=== PATIENT | male | born 1955 | race African-American/Black ===

== ENCOUNTER 2016-03-10 10:57 | Inpatient (IN) | payer OTHER ==
[2016-03-10 11:45] VITALS: BMI 30.8
--- NOTE | 2016-03-10 13:02 | HP ---
CIWA Score - CIWA Score Nausea/Vomitin Muscle Tremors: 3 Anxiety: 3 Agitation: 3 Paroxysmal Sweats: 2 Orientation: 0-Oriented Tacttile Disturbances: 2-Mild Itch/Numbness/Burn Auditory Disturbances: 2-Mild Harshness/Frighten Visual Disturbances: 2-Mild Sensitivity Headache: 2-Mild CIWA-Ar Total Score: 22 Admission ROS BHS - HPI Chief Complaint: i need help to stop drinking alcohol,cocaine,heroin abused,mmtp 110/mgs per day, last medicated today Allergies/Adverse Reactions: Allergies Allergy/AdvReac Type Severity Reaction Status Date / Time No Known Allergies Allergy Verified 03/10/16 12:54 History of Present Illness: this 60 years old mal with alcohol,cocaine dependence,heroin abused,mmtp last medicated today,withdrawal symptom,last detox 2003 hypertension type 2 dm hepatitis c nicotine dependence mmtp 110 mg/day,last medicated today longest period of sobriety 12 years Exam Limitations: No Limitations - Ebola screening Have you traveled outside of the country in the last 21 days: No Have you had contact with anyone from an Ebola affected area: No Have you been sick,other than usual withdrawal symptoms: No - Review of Systems Constitutional: Chills, Diaphoresis, Loss of Appetite, Malaise, Night Sweats, Changes in sleep, Weakness EENT: reports: Nose Congestion Respiratory: reports: No Symptoms reported Cardiac: reports: No Symptoms Reported GI: reports: Diarrhea, Nausea, Vomiting, Abdominal cramping : reports: No Symptoms Reported Musculoskeletal: reports: Back Pain, Joint Pain, Muscle Pain, Joint Stiffness Integumentary: reports: Dryness Neuro: reports: Headache, Tremors Endocrine: reports: No Symptoms Reported Hematology: reports: No Symptoms Reported Psychiatric: reports: Depressed Other Systems: Reviewed and Negative Patient History - Patient Medical History Hx Anemia: No Hx Asthma: No Hx Chronic Obstructive Pulmonary Disease (COPD): No Hx Cancer: No Hx Cardiac Disorders: Yes (old mi in 2011) Hx Congestive Heart Failure: No Hx Hypertension: Yes (on medication) Hx Hypercholesterolemia: No Hx Pacemaker: No HX Cerebrovascular Accident: No Hx Seizures: No Hx Dementia: No Hx Diabetes: Yes (no med) Hx Gastrointestinal Disorders: No Hx Liver Disease: No Hx Genitourinary Disorders: No Hx Sexually Transmitted Disorders: No Hx Renal Disease (ESRD): No Hx Thyroid Disease: No Hx Human Immunodeficiency Virus (HIV): No (last 09/12 negative) Hx Hepatitis C: Yes (monitor by pmd) Hx Depression: Yes Hx Suicide Attempt: No Hx Bipolar Disorder: No Hx Schizophrenia: No Other Medical History: no suiidal,no homicidal - Patient Surgical History Other Surgical History: dog bite right leg - PPD History Previous Implant?: Yes Documented Results: Negative w/o proof Implanted On Prior [facility] Admission?: No PPD to be Administered?: Yes - Smoking Cessation Smoking history: Current every day smoker Have you smoked in the past 12 months: Yes Aproximately how many cigarettes per day: 20 Cigars Per Day: 0 Hx Chewing Tobacco Use: No Initiated information on smoking cessation: Yes 'Breaking Loose' booklet given: 03/10/16 - Substance & Tx. History Hx Alcohol Use: Yes Substance Use Type: Alcohol, Cocaine Hx Substance Use Treatment: Yes (in 2003 [facility]) Family Disease History - Family Disease History Family Disease History: Other: Father (alcohol,) Admission Physical Exam S - Vital Signs Vital Signs: Vital Signs - 24 hr 03/10/16 11:42 Temperature 97.1 F L Pulse Rate 80 Respiratory 16 Rate Blood Pressure 127/81 - Physical General Appearance: Yes: Moderate Distress, Tremorous, Irritable, Sweating, Anxious HEENTM: Yes: Nasal Congestion Respiratory: Yes: Lungs Clear Neck: Yes: Within Normal Limits Breast: Yes: Within Normal Limits Cardiology: Yes: Within Normal Limits, Regular Rhythm, Regular Rate, S1, S2 Abdominal: Yes: Within Normal Limits, Normal Bowel Sounds, Non Tender, Flat, Soft Genitourinary: Yes: Within Normal Limits Back: Yes: Muscle Spasm Musculoskeletal: Yes: Back pain, Muscle Pain Extremities: Yes: Tremors Neurological: Yes: customer service clerk II-XII NML intact, Fully Oriented, Alert, Motor Strength 5/5 Integumentary: Yes: Dry Lymphatic: Yes: Within Normal Limits - Diagnostic (1) Alcohol dependence with uncomplicated withdrawal Current Visit: Yes Status: Acute (2) Cocaine dependence Current Visit: Yes Status: Acute (3) Opioid dependence Current Visit: Yes Status: Acute (4) Patient on methadone maintenance therapy Current Visit: Yes Status: Acute (5) Essential hypertension Current Visit: Yes Status: Acute (6) Hepatitis C Current Visit: Yes Status: Acute (7) DM2 (diabetes mellitus, type 2) Current Visit: Yes Status: Acute (8) Anxiety and depression Current Visit: Yes Status: Acute (9) Low back pain Current Visit: Yes Status: Acute Cleared for Admission [facility] - Detox or Rehab [facility] Level of Care: Medically Managed Detox Regimen/Protocol: Librium [facility] Breath Alcohol Content Breath Alcohol Content: 0 Urine Drug Screen - Results Drug Screen Negative: No Urine Drug Screen Results: ESTUARDO-Cocaine, OPI-Opiates, MTD-Methadone, TCA- Tricyclic Antidepress, OXY-Oxycodone
[2016-03-10] MEDS ORDERED: guaiFENesin/D-METHORPHAN HB 10 ML UNIT-DOSE CUPS PO PRN (13:29)
[2016-03-10] MEDS ORDERED: P-EPHED 60MG/TRIPROLIDI 2.5MG TABLET PO PRN (13:29)
[2016-03-10] MEDS ORDERED: LOPERAMIDE HCL 2 MG CAPSULE PO PRN (13:29)
[2016-03-10] MEDS ORDERED: diphenhydrAMINE HCL 50 MG CAPSULE PO PRN (13:29)
[2016-03-10] MEDS ORDERED: hydrOXYzine PAMOATE 25 MG CAPSULE (FP) PO PRN (13:29)
[2016-03-10] MEDS ORDERED: chlordiazePOXIDE HCL 25 MG CAPSULE PO PRN (13:29)
[2016-03-10] MEDS ORDERED: MAGNESIUM CITRATE 300 ML BOTTLE PO PRN (13:29)
[2016-03-10] MEDS ORDERED: MAG HYDROX/AL HYDROX/SIMETH 30 ML UNIT-DOSE CUP PO PRN (13:29)
[2016-03-10] MEDS ORDERED: ACETAMINOPHEN 325 MG TABLET (FP) PO PRN (13:29)
[2016-03-10] MEDS ORDERED: MENTHOL/PHENOL 1 EACH UD MM PRN (13:29)
[2016-03-10] MEDS ORDERED: MAGNESIUM HYDROX 2400MG/30ML ORAL SUSPENSION 30 ML CUP PO PRN (13:29)
[2016-03-10] MEDS ORDERED: chlordiazePOXIDE HCL 25 MG CAPSULE PO ONE (13:58)
[2016-03-10] MEDS: NICOTINE 21 MG/24 HOURS TOPICAL PATCH TD SCH (15:41)
--- NOTE | 2016-03-10 16:05 | CONSULT ---
[facility] Psychiatric Consult - Data Date of interview: 03/10/16 Admission source: [facility] Identifying data: Readmission to [facility] for this 60 y/o AA male seeking detox treatment on for heroin,alcohol and cocaine dependence.Patient is ,a father of five,domiciled,unemployed and supported on Welfare. Substance Abuse History: - Smoking Cessation. Smoking history: Current every day smoker. Have you smoked in the past 12 months: Yes. Aproximately how many cigarettes per day: 20. Cigars Per Day: 0. Hx Chewing Tobacco Use: No. Initiated information on smoking cessation: Yes. 'Breaking Loose' booklet given : 03/10/16. - Substance & Tx. History. Hx Alcohol Use: Yes. Substance Use Type: Alcohol, Cocaine. Hx Substance Use Treatment: Yes (in 2003 [facility]). Confirmed by pateint. Medical History: Remarkable for hypertension,diabetes mellitus and a past history of myocardial infarction (2011). Psychiatric History: Patient denies. Physical/Sexual Abuse/Trauma History: Patient denies. Additional Comment: Urine Drug Screen Results: ESTUARDO-Cocaine, OPI-Opiates, MTD- Methadone, TCA-Tricyclic Antidepress, OXY-Oxycodone.Noted. Mental Status Exam - Mental Status Exam Alert and Oriented to: Time, Place, Person Cognitive Function: Good Patient Appearance: Well Groomed Mood: Hopeful, Euthymic Affect: Appropriate, Normal Range Patient Behavior: Appropriate, Cooperative Speech Pattern: Clear, Appropriate Voice Loudness: Normal Thought Process: Goal Oriented Thought Disorder: Not Present Hallucinations: Denies Suicidal Ideation: Denies Homicidal Ideation: Denies Insight/Judgement: Poor Sleep: Poorly, Difficulty falling asleep Appetite: Good Muscle strength/Tone: Normal Gait/Station: Normal Psychiatric Findings - Problem List ([place] 1, 2,3) (1) Alcohol dependence with uncomplicated withdrawal Current Visit: Yes Status: Acute (2) Opioid dependence Current Visit: Yes Status: Acute (3) Patient on methadone maintenance therapy Current Visit: Yes Status: Acute (4) Cocaine dependence Current Visit: Yes Status: Acute (5) Substance induced mood disorder Current Visit: Yes Status: Acute (6) DM2 (diabetes mellitus, type 2) Current Visit: Yes Status: Chronic (7) Essential hypertension Current Visit: Yes Status: Chronic (8) Hepatitis C Current Visit: Yes Status: Chronic (9) Low back pain Current Visit: Yes Status: Chronic (10) Insomnia Current Visit: Yes Status: Chronic - Initial Treatment Plan Initial Treatment Plan: Psychoeducation.Detoxification.Zolpidem 5 mg po hs prn hs for insomnia.Patient is made aware of risk of drowsiness/falls and possibly parasomnias.He states that he is familiar with ambien and that it was effective in the past.patient agrees with plan.Observation.
[2016-03-10] MEDS: chlordiazePOXIDE HCL 25 MG CAPSULE PO SCH ×2 (17:32→22:38)
[2016-03-10 19:53] LABS: PH,URINE 5.5 (5.0-8.0); URINE APPEARANCE CLEAR; URINE BILIRUBIN NEGATIVE (NEGATIVE); URINE BLOOD NEGATIVE (NEGATIVE); URINE COLOR YELLOW; URINE GLUCOSE (UA) NEGATIVE (NEGATIVE); URINE KETONE NEGATIVE (NEGATIVE); URINE LEUK ESTERASE NEGATIVE (NEGATIVE); URINE NITRITE NEGATIVE (NEGATIVE); URINE PROTEIN NEGATIVE (NEGATIVE); URINE UROBILINOGEN 1.0 E.U/dl E.U./dl (0.2-1.0)
[2016-03-10] MEDS: THIAMINE HCL 100 MG TABLET (FP) PO SCH (22:39)
[2016-03-10] MEDS: FLUTICASONE PROP 0.05% 16 GM NASAL SPRAY NS SCH (22:40)
[2016-03-11] MEDS: chlordiazePOXIDE HCL 25 MG CAPSULE PO SCH ×4 (05:33→22:33)
[2016-03-11] MEDS ORDERED: METHADONE HCL 10 MG TABLET PO ONE (09:33)
[2016-03-11] MEDS ORDERED: METHADONE 80 MG, METHADONE 30 MG PO ONE (09:40)
--- NOTE | 2016-03-11 10:06 | PN ---
S CIWA - CIWA Score Nausea/Vomitin Muscle Tremors: 3 Anxiety: 3 Agitation: 2 Paroxysmal Sweats: 1-Minimal Palms Moist Orientation: 0-Oriented Tacttile Disturbances: 1-Very Mild Itch/Numbness Auditory Disturbances: 1-Very Mild Visual Disturbances: 1-Very Mild Sensitivity Headache: 2-Mild CIWA-Ar Total Score: 17 BHS Progress Note (SOAP) Subjective: ALERT,IRRITABLE,ANXIOUS,INTERRUPTED SLEEP,TREMOR,PAIN IN THE BODY AND BACK Objective: 03/11/16 10:04 Vital Signs Temperature 96.3 F L 03/11/16 06:41 Pulse Rate 75 03/11/16 06:41 Respiratory Rate 18 03/11/16 06:41 Blood Pressure 147/82 03/11/16 06:41 O2 Sat by Pulse Oximetry (%) EKG NSR 03/11/16 10:05 Laboratory Last Values POC Glucometer 106 UNITS (()) 03/11/16 05:36 Urine Color Yellow 03/10/16 17:00 Urine Appearance Clear 03/10/16 17:00 Urine pH 5.5 (5.0-8.0) 03/10/16 17:00 Ur Specific [place] 1.025 (1.001-1.035) 03/10/16 17:00 Urine Protein Negative (NEGATIVE) 03/10/16 17:00 Urine Glucose (UA) Negative (NEGATIVE) 03/10/16 17:00 Urine Ketones Negative (NEGATIVE) 03/10/16 17:00 Urine Blood Negative (NEGATIVE) 03/10/16 17:00 Urine Nitrite Negative (NEGATIVE) 03/10/16 17:00 Urine Bilirubin Negative (NEGATIVE) 03/10/16 17:00 Urine Urobilinogen 1.0 e.u/dl E.U./dl (0.2-1.0) 03/10/16 17:00 Ur Leukocyte Esterase Negative (NEGATIVE) 03/10/16 17:00 Assessment: 03/11/16 10:05 WITHDRAWAL SYMPTOM Plan: CONTINUE DETOX
[2016-03-11 10:16] LABS: MCHC 33.8 g/dl (32.0-35.9); MEAN CELL VOLUME 94.6 fl (80-96); MEAN PLT VOLUME 9.3 fl (7.5-11.1); PLATELET COUNT 149 K/MM3 (134-434); RDW 13.3 % (11.9-15.9); WHITE BLOOD COUNT 4.1 K/mm3 (4.0-10.0)
[2016-03-11] MEDS ORDERED: METHADONE HCL 10 MG TABLET ONE (10:17)
[2016-03-11] MEDS ORDERED: METHADONE HCL 40 MG DISPERSABLE TABLET ONE (10:17)
[2016-03-11 10:23] LABS: ALBUMIN 4.1 g/dl (3.4-5.0); ANION GAP 8 (8-16); BILIRUBIN,TOTAL 0.7 mg/dL (0.2-1.0); CALCIUM 8.8 mg/dL (8.5-10.1); CO2 25 mmol/L (21-32); GLUCOSE,RANDOM 167 mg/dL (74-106); SGOT/AST 24 U/L (15-37); SGPT/ALT 38 U/L (12-78); TOT PROT 7.2 g/dl (6.4-8.2)
[2016-03-11 10:24] LABS: ALK PHOS 117 U/L (45-117)
[2016-03-11] MEDS: ASPIRIN 81 MG CHEWABLE TABLETS PO SCH (10:28)
[2016-03-11] MEDS: amLODIPine BESYLATE 10 MG TABLET (FP) PO SCH (10:29)
[2016-03-11] MEDS: FLUTICASONE PROP 0.05% 16 GM NASAL SPRAY NS SCH ×2 (10:29→22:33)
[2016-03-11] MEDS: PATIENT'S OWN MEDICATION (NON-FORMULARY) (Losartan/Hydrochlorothiazide [Losartan-Hctz 100- PO SCH (10:30)
[2016-03-11] MEDS: PRENATAL VITAMINS W/ FOLIC ACID TABLET (FP) PO SCH (10:30)
[2016-03-11] MEDS: NICOTINE 21 MG/24 HOURS TOPICAL PATCH TD SCH (10:30)
--- NOTE | 2016-03-11 12:29 | EKG ---
Test Reason : Blood Pressure : / mmHG Vent. Rate : 088 BPM Atrial Rate : 088 BPM P-R Int : 142 ms QRS Dur : 088 ms QT Int : 382 ms P-R-T Axes : 011 010 031 degrees QTc Int : 462 ms NORMAL SINUS RHYTHM MINIMAL VOLTAGE CRITERIA FOR LVH, MAY BE NORMAL VARIANT BORDERLINE ECG NO PREVIOUS ECGS AVAILABLE Confirmed by YEISON MARTINEZ MD ([id number]) on 03/11/2016 12:29:09 PM Referred By: Confirmed By:YEISON MARTINEZ MD
[2016-03-11] MEDS: IBUPROFEN 400 MG TABLET (FP) PO PRN ×2 (12:39→21:26)
[2016-03-11] MEDS: ZOLPIDEM TARTRATE 5 MG TABLET PO PRN (22:33)
[2016-03-11] MEDS: THIAMINE HCL 100 MG TABLET (FP) PO SCH (22:33)
[2016-03-12] MEDS ORDERED: METHADONE HCL 10 MG TABLET ONE (04:46)
[2016-03-12] MEDS ORDERED: METHADONE HCL 40 MG DISPERSABLE TABLET ONE (04:47)
[2016-03-12] MEDS: chlordiazePOXIDE HCL 25 MG CAPSULE PO SCH ×2 (05:47→10:45)
[2016-03-12] MEDS: METHADONE 80 MG, METHADONE 30 MG PO SCH (05:48)
[2016-03-12] MEDS ORDERED: METHADONE 40 MG, METHADONE 30 MG PO SCH (06:00)
[2016-03-12] MEDS ORDERED: METHADONE HCL 40 MG DISPERSABLE TABLET PO SCH (06:00)
[2016-03-12] MEDS: PATIENT'S OWN MEDICATION (NON-FORMULARY) (Losartan/Hydrochlorothiazide [Losartan-Hctz 100- PO SCH (10:43)
[2016-03-12] MEDS: FLUTICASONE PROP 0.05% 16 GM NASAL SPRAY NS SCH ×2 (10:43→22:26)
[2016-03-12] MEDS: ASPIRIN 81 MG CHEWABLE TABLETS PO SCH (10:44)
[2016-03-12] MEDS: amLODIPine BESYLATE 10 MG TABLET (FP) PO SCH (10:44)
[2016-03-12] MEDS: NICOTINE 21 MG/24 HOURS TOPICAL PATCH TD SCH (10:44)
[2016-03-12] MEDS: PRENATAL VITAMINS W/ FOLIC ACID TABLET (FP) PO SCH (10:44)
--- NOTE | 2016-03-12 12:21 | PN ---
[facility] CIWA - CIWA Score Nausea/Vomitin-No Nausea/No Vomiting Muscle Tremors: 3 Anxiety: 4-Mod. Anxious/Guarded Agitation: 3 Paroxysmal Sweats: 3 Orientation: 0-Oriented Tacttile Disturbances: 0-None Auditory Disturbances: 0-None Visual Disturbances: 0-None Headache: 0-None Present CIWA-Ar Total Score: 13 S Progress Note (SOAP) Subjective: PT. C/O SEVERE ABDOMINAL PAIN,ANXIETY,TREMORS,SWEATING,RESTLESS,INTERRUPTED SLEEP. Objective: 03/12/16 12:20 Vital Signs - 8 hr 03/12/16 03/12/16 06:28 09:36 Temperature 97 F L 98.3 F Pulse Rate 76 81 Respiratory 18 18 Rate Blood Pressure 142/87 120/86 Laboratory Tests 03/10/16 03/10/16 03/10/16 13:15 16:24 17:00 WBC RBC Hgb Hct MCV MCHC RDW Plt Count MPV Sodium Potassium Chloride Carbon Dioxide Anion Gap BUN Creatinine Creat Clearance w eGFR POC Glucometer 126 114 Random Glucose Calcium Total Bilirubin AST ALT Alkaline Phosphatase Total Protein Albumin Urine Color Yellow Urine Appearance Clear Urine pH 5.5 Ur Specific [place] 1.025 Urine Protein Negative Urine Glucose (UA) Negative Urine Ketones Negative Urine Blood Negative Urine Nitrite Negative Urine Bilirubin Negative Urine Urobilinogen 1.0 e.u/dl Ur Leukocyte Esterase Negative RPR Titer 03/11/16 03/11/16 03/11/16 05:36 06:00 06:00 WBC 4.1 RBC 4.12 Hgb 13.2 Hct 39.0 MCV 94.6 MCHC 33.8 RDW 13.3 Plt Count 149 MPV 9.3 Sodium 139 Potassium 4.2 Chloride 106 Carbon Dioxide 25 Anion Gap 8 BUN 17 Creatinine 1.0 Creat Clearance w eGFR > 60 POC Glucometer 106 Random Glucose 167 H Calcium 8.8 Total Bilirubin 0.7 AST 24 ALT 38 Alkaline Phosphatase 117 Total Protein 7.2 Albumin 4.1 Urine Color Urine Appearance Urine pH Ur Specific [place] Urine Protein Urine Glucose (UA) Urine Ketones Urine Blood Urine Nitrite Urine Bilirubin Urine Urobilinogen Ur Leukocyte Esterase RPR Titer 03/11/16 06:00 WBC RBC Hgb Hct MCV MCHC RDW Plt Count MPV Sodium Potassium Chloride Carbon Dioxide Anion Gap BUN Creatinine Creat Clearance w eGFR POC Glucometer Random Glucose Calcium Total Bilirubin AST ALT Alkaline Phosphatase Total Protein Albumin Urine Color Urine Appearance Urine pH Ur Specific [place] Urine Protein Urine Glucose (UA) Urine Ketones Urine Blood Urine Nitrite Urine Bilirubin Urine Urobilinogen Ur Leukocyte Esterase RPR Titer Nonreactive LABS NOTED Assessment: 03/12/16 12:21 WITHDRAWAL SX. Plan: CONTINUE DETOX
[2016-03-12] MEDS: chlordiazePOXIDE 5 MG CAPSULE PO SCH ×2 (17:26→22:26)
[2016-03-12] MEDS: THIAMINE HCL 100 MG TABLET (FP) PO SCH (22:25)
[2016-03-12] MEDS: ZOLPIDEM TARTRATE 5 MG TABLET PO PRN (22:28)
[2016-03-13] MEDS ORDERED: METHADONE HCL 40 MG DISPERSABLE TABLET ONE (04:27)
[2016-03-13] MEDS ORDERED: METHADONE HCL 10 MG TABLET ONE (04:27)
[2016-03-13] MEDS: METHADONE 80 MG, METHADONE 30 MG PO SCH (05:44)
[2016-03-13] MEDS: chlordiazePOXIDE 5 MG CAPSULE PO SCH ×2 (05:44→10:23)
[2016-03-13] MEDS: amLODIPine BESYLATE 10 MG TABLET (FP) PO SCH (10:23)
[2016-03-13] MEDS: PATIENT'S OWN MEDICATION (NON-FORMULARY) (Losartan/Hydrochlorothiazide [Losartan-Hctz 100- PO SCH (10:23)
[2016-03-13] MEDS: FLUTICASONE PROP 0.05% 16 GM NASAL SPRAY NS SCH ×2 (10:23→22:34)
[2016-03-13] MEDS: NICOTINE 21 MG/24 HOURS TOPICAL PATCH TD SCH (10:23)
[2016-03-13] MEDS: ASPIRIN 81 MG CHEWABLE TABLETS PO SCH (10:23)
[2016-03-13] MEDS: PRENATAL VITAMINS W/ FOLIC ACID TABLET (FP) PO SCH (10:23)
--- NOTE | 2016-03-13 11:01 | PN ---
BHS Progress Note (SOAP) Subjective: gi upset and abdominal pain (onset prior to admission with negative workup so far) poor sleep sweating Objective: 03/13/16 11:00 Laboratory Tests 03/10/16 03/10/16 03/10/16 13:15 16:24 17:00 WBC RBC Hgb Hct MCV MCHC RDW Plt Count MPV Sodium Potassium Chloride Carbon Dioxide Anion Gap BUN Creatinine Creat Clearance w eGFR POC Glucometer 126 114 Random Glucose Calcium Total Bilirubin AST ALT Alkaline Phosphatase Total Protein Albumin Urine Color Yellow Urine Appearance Clear Urine pH 5.5 Ur Specific [place] 1.025 Urine Protein Negative Urine Glucose (UA) Negative Urine Ketones Negative Urine Blood Negative Urine Nitrite Negative Urine Bilirubin Negative Urine Urobilinogen 1.0 e.u/dl Ur Leukocyte Esterase Negative RPR Titer 03/11/16 03/11/16 03/11/16 05:36 06:00 06:00 WBC 4.1 RBC 4.12 Hgb 13.2 Hct 39.0 MCV 94.6 MCHC 33.8 RDW 13.3 Plt Count 149 MPV 9.3 Sodium 139 Potassium 4.2 Chloride 106 Carbon Dioxide 25 Anion Gap 8 BUN 17 Creatinine 1.0 Creat Clearance w eGFR > 60 POC Glucometer 106 Random Glucose 167 H Calcium 8.8 Total Bilirubin 0.7 AST 24 ALT 38 Alkaline Phosphatase 117 Total Protein 7.2 Albumin 4.1 Urine Color Urine Appearance Urine pH Ur Specific [place] Urine Protein Urine Glucose (UA) Urine Ketones Urine Blood Urine Nitrite Urine Bilirubin Urine Urobilinogen Ur Leukocyte Esterase RPR Titer 03/11/16 03/13/16 06:00 05:46 WBC RBC Hgb Hct MCV MCHC RDW Plt Count MPV Sodium Potassium Chloride Carbon Dioxide Anion Gap BUN Creatinine Creat Clearance w eGFR POC Glucometer 119 Random Glucose Calcium Total Bilirubin AST ALT Alkaline Phosphatase Total Protein Albumin Urine Color Urine Appearance Urine pH Ur Specific [place] Urine Protein Urine Glucose (UA) Urine Ketones Urine Blood Urine Nitrite Urine Bilirubin Urine Urobilinogen Ur Leukocyte Esterase RPR Titer Nonreactive Vital Signs - 24 hr 03/12/16 03/12/16 03/12/16 13:11 17:31 22:05 Temperature 97.8 F 97.1 F L 97.4 F L Pulse Rate 85 74 86 Respiratory 20 20 18 Rate Blood Pressure 121/82 118/81 135/93 03/13/16 03/13/16 03/13/16 00:21 06:30 09:30 Temperature 97.1 F L 97.8 F Pulse Rate 83 98 H Respiratory 18 18 20 Rate Blood Pressure 125/87 134/92 Assessment: 03/13/16 11:00 ongoing withdrawal Plan: continue detox protocol
[2016-03-13] MEDS: chlordiazePOXIDE HCL 10 MG CAPSULE PO SCH ×2 (17:23→22:33)
[2016-03-13] MEDS: THIAMINE HCL 100 MG TABLET (FP) PO SCH (22:33)
[2016-03-14] MEDS ORDERED: METHADONE HCL 40 MG DISPERSABLE TABLET ONE (01:35)
[2016-03-14] MEDS ORDERED: METHADONE HCL 10 MG TABLET ONE (01:35)
[2016-03-14] MEDS: chlordiazePOXIDE HCL 10 MG CAPSULE PO SCH (05:50)
[2016-03-14] MEDS: METHADONE 80 MG, METHADONE 30 MG PO SCH (05:51)
[2016-03-14 09:48] VITALS: BP 121/79; PULSE 104; TEMP 96.6
[2016-03-14] MEDS: PRENATAL VITAMINS W/ FOLIC ACID TABLET (FP) PO SCH (10:33)
[2016-03-14] MEDS: amLODIPine BESYLATE 10 MG TABLET (FP) PO SCH (10:34)
[2016-03-14] MEDS: NICOTINE 21 MG/24 HOURS TOPICAL PATCH TD SCH (10:35)
[2016-03-14] MEDS: FLUTICASONE PROP 0.05% 16 GM NASAL SPRAY NS SCH (10:36)
[2016-03-14] MEDS: PATIENT'S OWN MEDICATION (NON-FORMULARY) (Losartan/Hydrochlorothiazide [Losartan-Hctz 100- PO SCH (10:36)
--- NOTE | 2016-03-14 12:27 | DS ---
[facility] Detox Discharge Summary Admission Date: 03/10/16 Discharge Date: 03/14/16 - History Present History: Alcohol Dependence, MMTP Pertinent Past History: Asthma HTN DMT2 Hepatitis C - Physical Exam Results Vital Signs: Vital Signs Temperature 96.6 F L 03/14/16 09:47 Pulse Rate 104 H 03/14/16 09:47 Respiratory Rate 18 03/14/16 09:47 Blood Pressure 121/79 03/14/16 09:47 O2 Sat by Pulse Oximetry (%) Pertinent Admission Physical Exam Findings: Withdrawal symptoms Laboratory Tests 03/10/16 03/10/16 03/10/16 13:15 16:24 17:00 WBC RBC Hgb Hct MCV MCHC RDW Plt Count MPV Sodium Potassium Chloride Carbon Dioxide Anion Gap BUN Creatinine Creat Clearance w eGFR POC Glucometer 126 114 Random Glucose Calcium Total Bilirubin AST ALT Alkaline Phosphatase Total Protein Albumin Urine Color Yellow Urine Appearance Clear Urine pH 5.5 Ur Specific [place] 1.025 Urine Protein Negative Urine Glucose (UA) Negative Urine Ketones Negative Urine Blood Negative Urine Nitrite Negative Urine Bilirubin Negative Urine Urobilinogen 1.0 e.u/dl Ur Leukocyte Esterase Negative RPR Titer 03/11/16 03/11/16 03/11/16 05:36 06:00 06:00 WBC 4.1 RBC 4.12 Hgb 13.2 Hct 39.0 MCV 94.6 MCHC 33.8 RDW 13.3 Plt Count 149 MPV 9.3 Sodium 139 Potassium 4.2 Chloride 106 Carbon Dioxide 25 Anion Gap 8 BUN 17 Creatinine 1.0 Creat Clearance w eGFR > 60 POC Glucometer 106 Random Glucose 167 H Calcium 8.8 Total Bilirubin 0.7 AST 24 ALT 38 Alkaline Phosphatase 117 Total Protein 7.2 Albumin 4.1 Urine Color Urine Appearance Urine pH Ur Specific [place] Urine Protein Urine Glucose (UA) Urine Ketones Urine Blood Urine Nitrite Urine Bilirubin Urine Urobilinogen Ur Leukocyte Esterase RPR Titer 03/11/16 03/13/16 03/14/16 06:00 05:46 05:50 WBC RBC Hgb Hct MCV MCHC RDW Plt Count MPV Sodium Potassium Chloride Carbon Dioxide Anion Gap BUN Creatinine Creat Clearance w eGFR POC Glucometer 119 122 Random Glucose Calcium Total Bilirubin AST ALT Alkaline Phosphatase Total Protein Albumin Urine Color Urine Appearance Urine pH Ur Specific [place] Urine Protein Urine Glucose (UA) Urine Ketones Urine Blood Urine Nitrite Urine Bilirubin Urine Urobilinogen Ur Leukocyte Esterase RPR Titer Nonreactive Labs noted - Treatment Hospital Course: Detox Protocol Followed, Detoxed Safely, Responded well, Discharged Condition Good - Medication Discharge Medications: Ambulatory Orders Amlodipine Besylate [Norvasc -] 10 mg PO DAILY 03/10/16 Aspirin [ASA -] 81 mg PO DAILY 03/10/16 Fluticasone Prop 0.05% Nasal [Flonase -] 1 spray NS BID 03/10/16 Losartan/Hydrochlorothiazide [Losartan-Hctz 100-25 mg Tab] 1 each PO DAILY 03/10 - Diagnosis (1) Alcohol dependence with uncomplicated withdrawal Status: Acute (2) Patient on methadone maintenance therapy Status: Chronic (3) DM2 (diabetes mellitus, type 2) Status: Chronic (4) Essential hypertension Status: Chronic (5) Hepatitis C Status: Chronic - AMA Did Patient Leave Against Medical Advice: No
== END 2016-03-14 12:08 | disposition home or self-care (01) | DRG 773 ==
LOC: YASAS 10:57 → Y3N 13:47
PROVIDERS: ADMIT Internal Medicine; ATTEND Internal Medicine
PROC: HZ2ZZZZ Detoxification Services for Substance Abuse Treatment (ICD-10-PCS; principal; 2016-03-10)
DX: F10.230 Alcohol dependence with withdrawal, uncomplicated (principal); F11.20 Opioid dependence, uncomplicated; F14.20 Cocaine dependence, uncomplicated; F17.210 Nicotine dependence, cigarettes, uncomplicated; F19.24 Other psychoactive substance dependence with psychoactive substance-induced mood disorder; F41.8 Other specified anxiety disorders; E11.9 Type 2 diabetes mellitus without complications; I10 Essential (primary) hypertension; I25.2 Old myocardial infarction; B18.2 Chronic viral hepatitis C; G47.00 Insomnia, unspecified; M54.5 Low back pain
CPT/HCPCS: 36415; 74000-TC; 80053; 81003; 85027; 86593; 93005; 93010

== ENCOUNTER 2023-06-26 12:21 | Emergency (ER) | payer OTHER ==
[2023-06-26 12:30] VITALS: BP 125/66; PULSE 85; RESP 20; TEMP 97.8; BMI 32.5
== END 2023-06-26 16:01 | disposition home or self-care (01) ==
LOC: JER 12:21
DX: R60.0 Localized edema (principal); M79.661 Pain in right lower leg; M79.662 Pain in left lower leg; M79.671 Pain in right foot; M79.672 Pain in left foot
CPT/HCPCS: 82962; 93970-TC; 99284-25